=== PATIENT | female | born 1985 | race Caucasian/White ===

== ENCOUNTER 2017-06-08 11:31 | Emergency (ER) | payer MEDICAID, OTHER ==
[~2017-06-08] VITALS: Ht 154.9 cm; Wt 76.0 kg
[2017-06-08 12:26] LABS: CLARITY URINE CLEAR (CLEAR); COLOR URINE ORANGE (YELLOW); KETONES URINE 1+ (NEGATIVE); LEUKOCYTE ESTERASE URINE TRACE (NEGATIVE); NITRITE URINE NEGATIVE (NEGATIVE); OCCULT BLOOD URINE 3+ (NEGATIVE); PH URINE 8.5 (4.5-8.0); PROTEIN URINE NEGATIVE (NEGATIVE); SPECIFIC GRAVITY URINE 1.012 (1.005-1.030); UROBILINOGEN URINE 0.2 E.U./dL (0.2-1.0)
[2017-06-08 13:25] LABS: BASOPHILS % 0.9 % (0.0-2.0); EOSINOPHILS % 0.4 % (0.0-5.0); HEMATOCRIT. 38.9 % (36.0-48.0); HEMOGLOBIN. 13.3 g/dL (12.0-16.0); LYMPHOCYTES % 19.6 % (20.0-50.0); MEAN CORPUSCULAR HEMOGLOBIN 31.7 pg (28.0-32.0); MEAN CORPUSCULAR VOLUME 92.4 fL (81.0-99.0); MEAN PLATELET VOLUME 8.9 fl (7.4-10.4); MONOCYTES % 6.6 % (2.0-8.0); NEUTROPHILS % 72.5 % (40.0-76.0); PLATELET 240 x1000/uL (130-400); RED BLOOD CELL COUNT 4.21 mill/uL (4.2-5.4); RED CELL DISTRIBUTION WIDTH 13.8 % (11.6-14.6)
[2017-06-08 13:29] LABS: CHLORIDE 102 mEq/L (98-107)
[2017-06-08 13:54] LABS: B-HCG QUANTITATIVE 76750 mIU/mL (<3)
[2017-06-08 15:13] VITALS: BP 111/66
== END 2017-06-08 15:14 | disposition home or self-care (01) ==
LOC: ER 11:31
DX: O20.0 Threatened abortion (principal); Z3A.01 Less than 8 weeks gestation of pregnancy
CPT/HCPCS: 36415; 76801; 80053; 81003; 81025; 84702; 85025; 86900; 99285

== ENCOUNTER 2018-01-06 16:09 | Inpatient (IN) | payer MEDICAID ==
[~2018-01-06] VITALS: Ht 160 cm; Wt 82.6 kg
[2018-01-06] MEDS ORDERED: DEXT 5%/LR + PITOCIN 20UNITS/L 1,000 ML IV SCH ×2 (16:16→20:29)
[2018-01-06] MEDS ORDERED: METHYLERGONOVINE MALEATE 0.2 MG/ML IM PRN (16:30)
[2018-01-06] MEDS ORDERED: CARBOPROST TROMETHAMINE 250 MCG/ML AMPUL IM PRN (16:30)
[2018-01-06] MEDS ORDERED: NALOXONE HCL 0.4 MG/ML 1ML VIAL IM PRN (16:30)
[2018-01-06] MEDS: LACTATED RINGERS 1,000 ML IV SCH ×2 (17:16→18:51)
[2018-01-06 17:18] LABS: CLARITY URINE CLOUDY (CLEAR); COLOR URINE YELLOW (YELLOW); KETONES URINE 4+ (NEGATIVE); LEUKOCYTE ESTERASE URINE NEGATIVE (NEGATIVE); NITRITE URINE NEGATIVE (NEGATIVE); OCCULT BLOOD URINE TRACE (NEGATIVE); PROTEIN URINE NEGATIVE (NEGATIVE); SPECIFIC GRAVITY URINE 1.017 (1.005-1.030); UROBILINOGEN URINE 0.2 E.U./dL (0.2-1.0)
[2018-01-06 17:22] LABS: BASOPHILS % 0.2 % (0.0-2.0); EOSINOPHILS % 0.1 % (0.0-5.0); HEMATOCRIT. 35.9 % (36.0-48.0); HEMOGLOBIN. 12.1 g/dL (12.0-16.0); LYMPHOCYTES % 14.8 % (20.0-50.0); MEAN CORPUSCULAR HEMOGLOBIN 30.9 pg (28.0-32.0); MEAN CORPUSCULAR VOLUME 91.2 fL (81.0-99.0); MONOCYTES % 4.9 % (2.0-8.0); PLATELET 187 x1000/uL (130-400); RED BLOOD CELL COUNT 3.93 mill/uL (4.2-5.4); RED CELL DISTRIBUTION WIDTH 14.9 % (11.6-14.6)
[2018-01-06 17:26] LABS: PARTIAL THROMBOPLASTIN TIME 27.8 sec (23.4-31.0); PROTHROMBIN TIME 9.6 sec (9.1-11.1)
[2018-01-06 17:34] LABS: *AMPHETAMINES SCREEN URINE NEGATIVE (NEGATIVE); *BARBITURATES SCREEN URINE NEGATIVE (NEGATIVE); *BENZODIAZEPINES SCREEN URINE NEGATIVE (NEGATIVE); *COCAINE SCREEN URINE NEGATIVE (NEGATIVE); CANNABINOID URINE SCREEN NEGATIVE (NEGATIVE); METHADONE URINE SCREEN NEGATIVE (NEGATIVE); OPIATES URINE SCREEN NEGATIVE (NEGATIVE); PHENCYCLIDINE URINE SCREEN NEGATIVE (NEGATIVE)
[2018-01-06 17:50] LABS: HEPATITIS B SURFACE ANTIGEN NEGATIVE
[2018-01-06] MEDS ORDERED: KETOROLAC 60MG/2ML VIAL IM ONE (19:25)
[2018-01-06] MEDS ORDERED: PHENYLEPHRINE HCL 10 MG/ML 1ML (IV VIAL) IV ONE (19:25)
[2018-01-06] MEDS ORDERED: MORPHINE SULFATE/PF 1MG/ML 10ML AMP ONE (19:25)
[2018-01-06] MEDS ORDERED: SODIUM CHLORIDE 0.9% 10ML VIAL ONE (19:25)
[2018-01-06] MEDS ORDERED: EPHEDRINE SULFATE 50MG/ML VIAL ONE (19:25)
[2018-01-06] MEDS ORDERED: CEFAZOLIN SODIUM 1000MG/VIAL ONE (19:25)
[2018-01-06] MEDS ORDERED: ONDANSETRON HCL 4MG/2ML INJ ONE (19:25)
[2018-01-06] MEDS ORDERED: METOCLOPRAMIDE HCL 10MG/2ML VIAL ONE (19:25)
[2018-01-06] MEDS ORDERED: OXYTOCIN 10 UNITS/ML 1ML ONE (19:26)
[2018-01-06] MEDS ORDERED: BUPIVACAINE HCL/DEXTROSE/PF 0.75% 2ML AMP INJ ONE (19:30)
[2018-01-06] MEDS ORDERED: RHO(D) IMMUNE GLOBULIN 300 MCG/SYR IM PRN (20:30)
[2018-01-06] MEDS ORDERED: LANOLIN OINT 0.25 GM TUBE TOP PRN (21:00)
[2018-01-06] MEDS ORDERED: HYDROMORPHONE HCL/PF 2MG/ML CPJ IV PRN (23:06)
[2018-01-07] VITALS (7 sets, daily range): BP systolic 98–105; BP diastolic 42–56
[2018-01-07] MEDS: ONDANSETRON HCL 4MG/2ML INJ IV PRN ×2 (03:13→10:46)
[2018-01-07 07:13] LABS: BASOPHILS % 0.4 % (0.0-2.0); EOSINOPHILS % 0.2 % (0.0-5.0); HEMATOCRIT. 32.3 % (36.0-48.0); HEMOGLOBIN. 10.9 g/dL (12.0-16.0); LYMPHOCYTES % 9.3 % (20.0-50.0); MEAN CORPUSCULAR HEMOGLOBIN 30.8 pg (28.0-32.0); MEAN CORPUSCULAR VOLUME 91.6 fL (81.0-99.0); MEAN PLATELET VOLUME 9.6 fl (7.4-10.4); NEUTROPHILS % 84.1 % (40.0-76.0); PLATELET 153 x1000/uL (130-400); RED BLOOD CELL COUNT 3.52 mill/uL (4.2-5.4); RED CELL DISTRIBUTION WIDTH 14.8 % (11.6-14.6)
[2018-01-07] MEDS: PRENATAL VIT/FE FUMARATE/FA TABLET PO SCH (08:23)
[2018-01-07] MEDS: HYDROCODONE/ACETAMINOPHEN 5/325MG TABLET PO PRN ×3 (08:24→23:37)
[2018-01-07] MEDS: IBUPROFEN 400MG TABLET PO PRN (18:54)
[2018-01-07] MEDS: DOCUSATE SODIUM 100MG CAPSULE PO SCH (23:21)
[2018-01-08] VITALS: BP 98/52
[2018-01-08 04:00] VITALS: BP 98/51
[2018-01-08] MEDS: HYDROCODONE/ACETAMINOPHEN 5/325MG TABLET PO PRN ×8 (05:57→20:06)
[2018-01-08 08:30] VITALS: BP 103/55
[2018-01-08] MEDS: PRENATAL VIT/FE FUMARATE/FA TABLET PO SCH (09:59)
[2018-01-08 17:36] VITALS: BP 108/59
[2018-01-08 19:45] VITALS: BP 100/57
[2018-01-08] MEDS: BISACODYL 10MG SUPP PR PRN (19:58)
[2018-01-08] MEDS: DOCUSATE SODIUM 100MG CAPSULE PO SCH (20:06)
[2018-01-08] MEDS: IBUPROFEN 400MG TABLET PO PRN (23:14)
[2018-01-09 00:30] VITALS: BP 115/70
[2018-01-09] MEDS: HYDROCODONE/ACETAMINOPHEN 5/325MG TABLET PO PRN (02:30)
[2018-01-09 04:00] VITALS: BP 97/51
[2018-01-09 08:00] VITALS: BP 108/66
[2018-01-09] MEDS: IBUPROFEN 400MG TABLET PO PRN (09:34)
[2018-01-09] MEDS: BISACODYL 10MG SUPP PR PRN (09:34)
[2018-01-09] MEDS: PRENATAL VIT/FE FUMARATE/FA TABLET PO SCH (09:34)
== END 2018-01-09 12:40 | disposition home or self-care (01) | DRG 540 ==
LOC: OBSVTOIN 16:09 → L&D 16:09 → 7EST PP/OB 01-07
PROVIDERS: ADMIT Obstetrics & Gynecology; ATTEND Obstetrics & Gynecology
PROC: 10D00Z1 Extraction of Products of Conception, Low, Open Approach (ICD-10-PCS; principal; 2018-01-06 23:55)
DX: O34.211 Maternal care for low transverse scar from previous cesarean delivery (principal); D62 Acute posthemorrhagic anemia; Z37.0 Single live birth; O75.89 Other specified complications of labor and delivery; N83.8 Other noninflammatory disorders of ovary, fallopian tube and broad ligament; O99.02 Anemia complicating childbirth; Z3A.39 39 weeks gestation of pregnancy
CPT/HCPCS: 36415; 80305; 86592; 86703; 86762; 86850; 86900; 86920; 87340; 88307; 99281; A4216; J0690; J1170; J1885; J2274; J2370; J2405; J2590; J2765; J3490; J7030; J7120

== ENCOUNTER 2022-05-06 07:26 | Inpatient (IN) | payer MEDICAID ==
[~2022-05-06] VITALS: Ht 154.9 cm; Wt 80.7 kg
[2022-05-06] MEDS: LACTATED RINGERS 1,000 ML IV SCH ×3 (09:17→14:52)
[2022-05-06] MEDS ORDERED: ACETAMINOPHEN 500MG TABLET PO NR (09:30)
[2022-05-06] MEDS ORDERED: OXYTOCIN 30 UNITS/500ML NS PMX 500 ML IV SCH ×2 (12:45→17:00)
[2022-05-06] MEDS ORDERED: NALOXONE HCL 0.4 MG/ML 1ML VIAL IM PRN (12:45)
[2022-05-06] MEDS ORDERED: METHYLERGONOVINE MALEATE 0.2 MG/ML IM PRN (12:45)
[2022-05-06] MEDS ORDERED: CARBOPROST TROMETHAMINE 250 MCG/ML AMPUL IM PRN (12:45)
[2022-05-06] MEDS ORDERED: LACTATED RINGERS 1,000 ML IV SCH (12:45)
[2022-05-06] MEDS ORDERED: MISOPROSTOL 100MCG TABLET VG SCH (12:45)
[2022-05-06 13:42] LABS: CLARITY URINE CLOUDY (CLEAR); COLOR URINE YELLOW (YELLOW); KETONES URINE NEGATIVE (NEGATIVE); LEUKOCYTE ESTERASE URINE 1+ (NEGATIVE); NITRITE URINE NEGATIVE (NEGATIVE); OCCULT BLOOD URINE NEGATIVE (NEGATIVE); PROTEIN URINE NEGATIVE (NEGATIVE); SPECIFIC GRAVITY URINE 1.008 (1.005-1.030); UROBILINOGEN URINE 0.2 E.U./dL (0.2-1.0)
[2022-05-06] MEDS ORDERED: ONDANSETRON HCL 4MG/2ML INJ ONE (14:18)
[2022-05-06] MEDS ORDERED: FENTANYL CITRATE/PF 50MCG/ML 2ML VIAL ONE (14:18)
[2022-05-06] MEDS ORDERED: EPHEDRINE SULFATE 50MG/ML VIAL ONE (14:18)
[2022-05-06] MEDS ORDERED: OXYTOCIN 10 UNITS/ML 1ML ONE (14:18)
[2022-05-06] MEDS ORDERED: CEFAZOLIN SODIUM 1000MG/VIAL ONE (14:18)
[2022-05-06 14:22] LABS: BASOPHILS % 0.5 % (0.0-2.0); EOSINOPHILS % 0.4 % (0.0-5.0); HEMATOCRIT. 32.1 % (36.0-48.0); HEMOGLOBIN. 11.3 g/dL (12.0-16.0); LYMPHOCYTES % 21.8 % (20.0-50.0); MEAN CORPUSCULAR HEMOGLOBIN 31.9 pg (28.0-32.0); MEAN CORPUSCULAR VOLUME 90.7 fL (81.0-99.0); MEAN PLATELET VOLUME 8.5 fl (7.4-10.4); MONOCYTES % 8.6 % (2.0-8.0); NEUTROPHILS % 68.7 % (40.0-76.0); PLATELET 190 x1000/uL (130-400); RED BLOOD CELL COUNT 3.54 mill/uL (4.2-5.4); RED CELL DISTRIBUTION WIDTH 14.3 % (11.6-14.6)
[2022-05-06 14:23] LABS: *AMPHETAMINES SCREEN URINE NEGATIVE (NEGATIVE); *BARBITURATES SCREEN URINE NEGATIVE (NEGATIVE); *BENZODIAZEPINES SCREEN URINE NEGATIVE (NEGATIVE); *COCAINE SCREEN URINE NEGATIVE (NEGATIVE); CANNABINOID URINE SCREEN NEGATIVE (NEGATIVE); METHADONE URINE SCREEN NEGATIVE (NEGATIVE); OPIATES URINE SCREEN NEGATIVE (NEGATIVE); PHENCYCLIDINE URINE SCREEN NEGATIVE (NEGATIVE)
[2022-05-06 14:32] LABS: INR 0.9; PARTIAL THROMBOPLASTIN TIME 24.9 sec (23.4-31.0); PROTHROMBIN TIME 9.9 sec (9.6-11.0)
[2022-05-06] MEDS ORDERED: TRANEXAMIC ACID 10 ML ONE (14:57)
[2022-05-06 15:04] LABS: HEPATITIS B SURFACE ANTIGEN NEGATIVE
[2022-05-06] MEDS ORDERED: DIPHENHYDRAMINE 50MG/ML VIAL ONE (15:47)
[2022-05-06] MEDS ORDERED: KETOROLAC 60MG/2ML VIAL IM ONE (15:52)
[2022-05-06] MEDS ORDERED: BUTORPHANOL TARTRATE 2 MG/ML VIAL IV PRN (16:00)
[2022-05-06] MEDS ORDERED: DIPHENHYDRAMINE 50MG/ML VIAL IV PRN (16:00)
[2022-05-06] MEDS ORDERED: NALOXONE HCL 0.4 MG/ML 1ML VIAL IV PRN (16:00)
[2022-05-06] MEDS ORDERED: KETOROLAC 30MG/ML VIAL IV SCH (16:00)
[2022-05-06] MEDS ORDERED: ONDANSETRON HCL 4MG/2ML INJ IV PRN (17:00)
[2022-05-06] MEDS ORDERED: RHO(D) IMMUNE GLOBULIN 300 MCG/SYR IM PRN (17:00)
[2022-05-06] MEDS ORDERED: HYDROCODONE/ACETAMINOPHEN 5/325MG TABLET PO PRN (17:00)
[2022-05-06] MEDS ORDERED: LANOLIN OINT 7GM TUBE TOP PRN (17:00)
[2022-05-06] MEDS ORDERED: IBUPROFEN 400MG TABLET PO PRN (17:00)
[2022-05-06 20:00] VITALS: BP 101/48
[2022-05-07 04:00] VITALS: BP 92/58
[2022-05-07 06:48] LABS: BASOPHILS % 0.5 % (0.0-2.0); EOSINOPHILS % 0.3 % (0.0-5.0); HEMATOCRIT. 31.1 % (36.0-48.0); HEMOGLOBIN. 10.5 g/dL (12.0-16.0); LYMPHOCYTES % 9.6 % (20.0-50.0); MEAN CORPUSCULAR HEMOGLOBIN 31.3 pg (28.0-32.0); MEAN CORPUSCULAR VOLUME 92.5 fL (81.0-99.0); MEAN PLATELET VOLUME 8.8 fl (7.4-10.4); MONOCYTES % 6.5 % (2.0-8.0); NEUTROPHILS % 83.1 % (40.0-76.0); PLATELET 180 x1000/uL (130-400); RED BLOOD CELL COUNT 3.36 mill/uL (4.2-5.4); RED CELL DISTRIBUTION WIDTH 14.9 % (11.6-14.6)
[2022-05-07 08:30] VITALS: BP 94/57
[2022-05-07] MEDS: PRENATAL VIT/FE FUMARATE/FA TABLET PO SCH (09:17)
[2022-05-07 16:00] VITALS: BP 91/50
[2022-05-07] MEDS: HYDROCODONE/ACETAMINOPHEN 5/325MG TABLET PO PRN ×2 (16:22→22:28)
[2022-05-07 20:00] VITALS: BP 90/47
[2022-05-07] MEDS ORDERED: INFLUENZA VACCINE 05/PF 0.5 ML SYRINGE IM ONE (21:00)
[2022-05-07] MEDS: DOCUSATE SODIUM 100MG CAPSULE PO SCH (21:57)
[2022-05-07] MEDS: SIMETHICONE 80MG TABLET CHEW PO SCH (22:27)
[2022-05-08 03:30] VITALS: BP 92/49
[2022-05-08 08:00] VITALS: BP 112/61
[2022-05-08] MEDS: SIMETHICONE 80MG TABLET CHEW PO SCH ×4 (08:22→21:21)
[2022-05-08] MEDS: BISACODYL 10MG SUPP PR SCH (08:22)
[2022-05-08] MEDS: HYDROCODONE/ACETAMINOPHEN 5/325MG TABLET PO PRN (08:23)
[2022-05-08] MEDS: PRENATAL VIT/FE FUMARATE/FA TABLET PO SCH (09:00)
[2022-05-08] MEDS: IBUPROFEN 600MG TABLET PO PRN ×2 (15:34→21:20)
[2022-05-08 15:53] VITALS: BP 112/60
[2022-05-08 20:00] VITALS: BP 96/52
[2022-05-08] MEDS: DOCUSATE SODIUM 100MG CAPSULE PO SCH (21:20)
[2022-05-09 04:30] VITALS: BP 106/70
[2022-05-09] MEDS: IBUPROFEN 600MG TABLET PO PRN (04:39)
[2022-05-09] MEDS: SIMETHICONE 80MG TABLET CHEW PO SCH ×2 (04:39→06:45)
[2022-05-09] MEDS: BISACODYL 10MG SUPP PR SCH (04:39)
[2022-05-09 08:00] VITALS: BP 110/58
[2022-05-09] MEDS: PRENATAL VIT/FE FUMARATE/FA TABLET PO SCH (09:00)
[2022-05-09] MEDS ORDERED: NALOXONE HCL 0.4MG/ML VIAL IV PRN ×2 (09:15→12:00)
[2022-05-09] MEDS: LACTATED RINGERS 1,000 ML IV SCH ×2 (09:34→17:16)
[2022-05-09] MEDS ORDERED: MORPHINE SULFATE 2 MG/ML CPJ (NOT FOR IM USE) IV PRN (11:45)
[2022-05-09 12:00] VITALS: BP 109/51
[2022-05-09 16:00] VITALS: BP 96/53
[2022-05-09 20:00] VITALS: BP 100/61
[2022-05-10] MEDS: LACTATED RINGERS 1,000 ML IV SCH (01:03)
[2022-05-10 04:00] VITALS: BP 107/55
[2022-05-10 07:30] VITALS: BP 109/55
[2022-05-10 16:00] VITALS: BP 116/54
[2022-05-10] MEDS: SIMETHICONE 80MG TABLET CHEW PO SCH (18:00)
[2022-05-10] MEDS: IBUPROFEN 600MG TABLET PO PRN (18:00)
[2022-05-10] MEDS ORDERED: THROAT LOZENGES-BENZOCAINE/MENTH/CETYLPYRD CL LOZENGES MM PRN (18:00)
[2022-05-10 20:00] VITALS: BP 106/62
[2022-05-11 05:13] VITALS: BP 105/57
[2022-05-11] MEDS ORDERED: IBUP-2030 MT (07:08)
[2022-05-11 08:00] VITALS: BP 115/61
== END 2022-05-11 11:00 | disposition home or self-care (01) | DRG 539 ==
LOC: 8 EST LDRP 07:26 → 8EST 19:50
PROVIDERS: ADMIT Obstetrics & Gynecology; ATTEND Obstetrics & Gynecology
PROC: 10D00Z1 Extraction of Products of Conception, Low, Open Approach (ICD-10-PCS; principal; 2022-05-06)
PROC: 0UB70ZZ Excision of Bilateral Fallopian Tubes, Open Approach (ICD-10-PCS; 2022-05-06)
DX: O34.211 Maternal care for low transverse scar from previous cesarean delivery (principal); D62 Acute posthemorrhagic anemia; K56.7 Ileus, unspecified; K91.89 Other postprocedural complications and disorders of digestive system; Z3A.38 38 weeks gestation of pregnancy; Z37.0 Single live birth
CPT/HCPCS: 36415; 74018; 76815; 76818; 80305; 81003; 85025; 86592; 86703; 86762; 86850; 86900; 86920; 87340; 88302; 88307; 90686; 99281; G0378; J0690; J1200; J1885; J2270; J2405; J3010; J3490; J7120; A4315; J2590